=== PATIENT | male | born 1975 | race Two or more races ===

== ENCOUNTER 2018-10-09 08:33 | Emergency (ER) | payer OTHER ==
--- NOTE | 2018-10-09 09:06 | EDPHY ---
H & P Stated Complaint: HOWARD, dizziness Time Seen by Provider: 10/09/18 08:41 HPI/ROS: CHIEF COMPLAINT: Headache, dizziness HISTORY OF PRESENT ILLNESS: 42-year-old male with history of astrocytoma, status post resection in 2013, presents with headache and dizziness. Onset of right-sided headaches 6 weeks ago. The headaches are moderate to severe and intermittent. Associated with a room spinning sensation and nausea. The HOWARD's occur every few days. He had an episode of vertigo this morning, which prompted his visit. The headache is currently mild. Vertigo has resolved. No fever and no recent illness. REVIEW OF SYSTEMS: complete 10 point ROS reviewed and is negative except for the noted elements in the HPI - Personal History Current Tetanus/Diphtheria Vaccine: Unsure Current Tetanus Diphtheria and Acellular Pertussis (TDAP): Unsure - Medical/Surgical History Hx Asthma: No Hx Chronic Respiratory Disease: No Hx Diabetes: No Hx Cardiac Disease: No Hx Renal Disease: No Hx Cirrhosis: No Hx Alcoholism: No Hx HIV/AIDS: No Hx Splenectomy or Spleen Trauma: No Other PMH: Astrocytoma, status post resection in 2013 - Social History Smoking Status: Never smoked Alcohol Use: Sober Drug Use: None - Physical Exam Exam: General Appearance: Alert, pleasant Eyes: Pupils equal and round, right conjunctival injection, horizontal nystagmus, EOMI ENT, Mouth: Mucous membranes moist Neck: Normal inspection Respiratory: Lungs are clear to auscultation Cardiovascular: Regular rate and rhythm Gastrointestinal: Abdomen is soft and nontender Neurological: Alert, oriented x3, cranial nerves II through XII intact, motor 5 /5, sensory grossly intact, normal gait Skin: Warm and dry Extremities: Normal inspection Psychiatric: Mood and affect normal Constitutional: Initial Vital Signs Heart Rate 101 H 10/09/18 08:36 Respiratory Rate 16 10/09/18 08:36 Blood Pressure 143/93 H 10/09/18 08:36 O2 Sat (%) 95 10/09/18 08:36 O2 Delivery Mode Room Air Allergies/Adverse Reactions: No Known Allergies Allergy (Verified 10/09/18 08:36) Home Medications: Medication Instructions Recorded Meclizine HCl [Meclizine HCl 25 mg 25 mg PO TID PRN #15 tab 10/09/18 (RX,OTC)] Medical Decision Making - Diagnostics Imaging Results: Brain MRI 10/09/18 09:02 Impression: 1. No significant interval change in enhancing lesions involving the posterior right temporal lobe adjacent to the surgical resection site consistent with local recurrence of astrocytoma. 2. No significant change in right frontal lobe 4 mm subcortical enhancing lesion , and slight decrease in size of linear 3 mm enhancing lesion in the right occipital lobe. 3. No new enhancing lesions. 4. No acute infarct, hydrocephalus, midline shift, or herniation. Findings and recommendations discussed with Emergency Department physician, Ana Paula Iyer, at 10:20 a.m. on 10/09/2018. Final report concurs with initial preliminary interpretation. Imaging: Discussed imaging studies w/ call center team leader Radiologist ED Course/Re-evaluation: This patient presents with intermittent headaches, associated with vertigo. Neurologic exam is unremarkable. Concern for recurrent astrocytoma. MRI of the brain with and without contrast ordered. MRI is stable from prior MRI in July 2018 and reveals a local recurrence, measuring 16 x 9 mm. Results discussed with the patient. Consulted Dr. Robb Gaffney. The patient will follow up in the office. Alternative etiology for HOWARD considered, including ICH, SAH, meningitis. Doubt serious alternative etiology. No fever, recent illness, and no sx c/w SAH. I feel he is safe/ stable for discharge. Differential Diagnosis: Headache including but not limited to subarachnoid hemorrhage, migraine headache , tension headache and infectious causes such as meningitis, pharyngitis and sinusitis. - Data Points Laboratory Results: Laboratory Results 10/09/18 10:15 10/09/18 09:23 Departure - Departure Disposition: Home, Routine, Self-Care Clinical Impression: Vertigo Headache Qualifiers: Headache type: tension-type Headache chronicity pattern: episodic headache Intractability: not intractable Qualified Code(s): G44.219 - Episodic tension- type headache, not intractable Condition: Good Instructions: Meclizine (By mouth), Vertigo (ED), Acute Headache (ED) Additional Instructions: Return for worsening symptoms or any concerns. Regresar para empeoramineto de sintomas u cualquier preocupacion. Referrals: Kieran Morelos MD [Medical Doctor] - As per Instructions (Call to make an appointment with Dr. Morelos.) Stand Alone Forms: [facility] Instructions [facility]AM[facility] Prescriptions: Meclizine HCl [Meclizine HCl 25 mg (RX,OTC)] 25 mg PO TID PRN #15 tab PRN Reason: Dizziness Print Language: Romanian
[2018-10-09] MEDS ORDERED: GADOBUTROL 10 ML VIAL IVP ONE (09:29)
[2018-10-09 09:49] LABS: INR 0.92 (0.83-1.16)
[2018-10-09 10:20] LABS: PLATELET COUNT 234 10^3/uL (150-400)
[2018-10-09 11:32] VITALS: BP 117/79
== END 2018-10-09 12:05 | disposition home or self-care (01) ==
DX: R42 Dizziness and giddiness (principal); G44.219 Episodic tension-type headache, not intractable
CPT/HCPCS: A9585

== ENCOUNTER 2018-11-25 05:22 | Inpatient (IN) | payer OTHER | END 2018-11-27 13:00 | disposition home or self-care (01) | LOC: F3N 05:22 → F2N 15:35 → F3N 11-26 16:39 ==

== ENCOUNTER 2018-11-30 12:15 | Inpatient (IN) | payer OTHER | END 2018-12-02 16:03 | disposition home or self-care (01) | LOC: F3N 14:35 ==